=== PATIENT | female | born 1965 | race Caucasian/White ===

== ENCOUNTER → 2023-11-09 | Outpatient (CLI) | payer OTHER ==
--- NOTE | 2023-11-09 16:14 | CT ---
EXAMINATION TYPE: CT wrist RT wo con CT DLP: 106.10 mGycm, Automated exposure control for dose reduction was used. DATE OF EXAM: 11/09/2023 3:47 PM COMPARISON: None available CLINICAL INDICATION:Female, 58 years old with history of S52.571A FRACTURE OF LOWER END OF RIGHT RADI US, IN; PHH, Pain in right wrist, fracture of lower end of right radius. TECHNIQUE: Axial images were obtained of the right wrist without the use of IV contrast. Additional coronal and sagittal reformatted images and soft tissue and bone window were obtained for review. 3-D reconstruction was created on a separate workstation. FINDINGS: Acute comminuted minimally displaced fracture of the distal radial metaphysis with extensio n into the epiphysis. There is fracture lines extending into the radiocarpal joint and radioulnar andi nt. Most of the comminuted component is along the volar aspect. Joint effusion demonstrated. No dislo cation. Additional nondisplaced comminuted fracture of the ulnar styloid process. Additionally there is widening of the scapholunate interval. Surrounding soft tissue edema. Surrounding cast material of the right wrist. IMPRESSION: 1. Acute comminuted minimally displaced fracture of the distal radius with intra-articular extension . 2. Acute nondisplaced comminuted fracture of the ulnar styloid process. 3. Widening of the scapholunate ligament suggesting ligamentous injury.
== END | disposition home or self-care (01) ==
LOC: RADCTMAIN 15:16
PROVIDERS: ATTEND Orthopaedic Surgery Hand Surgery
DX: S52.571A Other intraarticular fracture of lower end of right radius, initial encounter for closed fracture